=== PATIENT | male | born 1960 | race Caucasian/White ===

== ENCOUNTER 2021-11-29 23:12 | Emergency (ER) | payer OTHER ==
[~2021-11-29] VITALS: Ht 180.3 cm; Wt 122.5 kg
[~2021-11-29 23:12] MED LIST: CIPR500 PO; CITA20 PO; DOXY100 PO; ESCI10; HYDCHL12.5 PO; HYDCHL25; HYDR-86; Inderal40 MG PO; LISI20 PO; Levaquin500 MG PO; Lovenox120 MG/0.8 SC; METHYLPHENIDATE20 M1 PO; OLME20-12.; OXYACE5T PO; QUET25; WARF1 PO; WARF5; ZOLP10; oxycodone-acetaminop PO
[2021-11-29] MEDS ORDERED: DESVENLAFAXINE50 M3 PO (23:22)
[2021-11-29] MEDS ORDERED: AMLODIPINE BES2.5 MG PO (23:23)
[2021-11-29] MEDS ORDERED: CLONAZEPAM2 MG PO (23:23)
[2021-11-29 23:50] LABS: International Normalized Ratio 1.62; Prothrombin Time Results 16.5 Sec (9.7-11.5)
[2021-11-30] MEDS ORDERED: ELIQUIS5 MG PO (00:23)
== END 2021-11-30 00:40 | disposition home or self-care (01) ==
LOC: ER 23:12
PROVIDERS: Emergency Medicine
DX: I82.431 Acute embolism and thrombosis of right popliteal vein (principal); I82.451 Acute embolism and thrombosis of right peroneal vein; R79.1 Abnormal coagulation profile; I10 Essential (primary) hypertension; Z79.899 Other long term (current) drug therapy
CPT/HCPCS: 36415; 85610; 85730; 93971; 99284-25; A9270

== ENCOUNTER 2022-08-29 15:14 | Emergency (ER) | payer OTHER ==
[~2022-08-29] VITALS: Ht 177.8 cm; Wt 122.5 kg
[~2022-08-29 15:14] MED LIST changes: +AMLODIPINE BES2.5 MG PO; +CLONAZEPAM2 MG PO; +DESVENLAFAXINE50 M3 PO; +ELIQUIS5 MG PO
[2022-08-29 16:28] LABS: BASOPHILS ABSOLUTE AUTO 0.07 K/mm3 (0.00-0.23); BASOPHILS PERCENT AUTO 1 % (0-2); EOSINOPHILS ABSOLUTE AUTO 0.07 K/mm3 (0.00-0.68); EOSINOPHILS PERCENT AUTO 1 % (0-6); Hematocrit 47.6 % (37.0-53.0); Hemoglobin 15.6 g/dL (13.5-17.5); IMMATURE GRAN ABSOLUTE AUTO 0.03 K/mm3 (0.00-0.10); IMMATURE GRAN PERCENT AUTO 0 % (0-1); LYMPHOCYTES ABSOLUTE AUTO 1.16 K/mm3 (0.84-5.20); LYMPHOCYTES PERCENT AUTO 14 % (21-46); MONOCYTES ABSOLUTE AUTO 0.75 K/mm3 (0.16-1.47); MONOCYTES PERCENT AUTO 9 % (4-13); Mean Corpuscular HGB 30.2 pg (26.0-34.0); Mean Corpuscular HGB Conc 32.8 g/dL (31.5-36.5); Mean Corpuscular Volume 92 fL (80-100); Mean Platelet Volume 10.1 fL (9.1-12.4); NEUTROPHILS PERCENT AUTO 76 % (41-73); Platelet Count 278 K/mm3 (150-400); RDW Coefficient Variation 13.9 % (11.7-14.2); RDW Standard Deviation 47.3 fL (35.1-46.3); Red Blood Cell Count 5.16 M/mm3 (4.30-5.90); White Blood Cell Count 8.48 K/mm3 (4.00-11.30)
[2022-08-29 16:39] LABS: Albumin, Blood 3.3 g/dL (3.4-5.0); Albumin/Globulin Ratio 0.9 (0.8-1.8); Bilirubin, Total 0.6 mg/dL (0.1-1.0); Bun/Creatinine Ratio 20.8 (12.0-20.0); Calcium, Blood 8.6 mg/dL (8.5-10.1); Creatinine, Blood 1.01 mg/dL (0.60-1.20); Globulin, Blood 3.5 g/dL (2.2-4.0); Potassium, Blood 3.8 mmol/L (3.5-5.5); Total Protein, Blood 6.8 g/dL (6.4-8.2)
[2022-08-29 17:15] LABS: Influenza A, PCR NEGATIVE (NEGATIVE); Influenza B, PCR NEGATIVE (NEGATIVE); Resp Syncytial Virus, PCR NEGATIVE (NEGATIVE); SARS-Cov-2 (COVID-19) PCR, MMC NEGATIVE (NEGATIVE)
[2022-08-29] MEDS ORDERED: METO25ER PO (20:07)
[2022-08-29] MEDS ORDERED: FURO20 PO (20:07)
== END 2022-08-29 21:20 | disposition home or self-care (01) ==
LOC: ER 15:14
PROVIDERS: Physician Assistant
DX: I11.0 Hypertensive heart disease with heart failure (principal); I50.9 Heart failure, unspecified; I49.3 Ventricular premature depolarization; R09.89 Other specified symptoms and signs involving the circulatory and respiratory systems; Z20.822 Contact with and (suspected) exposure to COVID-19; Z79.899 Other long term (current) drug therapy; Z79.01 Long term (current) use of anticoagulants; Z86.711 Personal history of pulmonary embolism; Z86.718 Personal history of other venous thrombosis and embolism
CPT/HCPCS: 0241U; 36415; 71260; 80053; 83880; 84484; 85025; 85379; 93005; 93010; 96374; 96375; 99285-25; A9270; J1940; J7030; Q9967

== ENCOUNTER 2022-12-23 12:02 | Inpatient (IN) | payer OTHER ==
[~2022-12-23] VITALS: Ht 177.8 cm; Wt 124.9 kg
[~2022-12-23 12:02] MED LIST changes: +CELEXA40 M1 PO; +DIGOX125 MC1 PO; +ELIQUIS5 M2 PO; +FURO20 PO; +HYDCHL25 PO; +METO25ER PO; +METO50ER PO; +ZOLP10 PO
[2022-12-23 12:45] LABS: BASOPHILS ABSOLUTE AUTO 0.05 K/mm3 (0.00-0.23); BASOPHILS PERCENT AUTO 1 % (0-2); EOSINOPHILS ABSOLUTE AUTO 0.23 K/mm3 (0.00-0.68); EOSINOPHILS PERCENT AUTO 2 % (0-6); Hematocrit 51.9 % (37.0-53.0); Hemoglobin 17.3 g/dL (13.5-17.5); IMMATURE GRAN ABSOLUTE AUTO 0.04 K/mm3 (0.00-0.10); IMMATURE GRAN PERCENT AUTO 0 % (0-1); LYMPHOCYTES ABSOLUTE AUTO 0.45 K/mm3 (0.84-5.20); LYMPHOCYTES PERCENT AUTO 4 % (21-46); MONOCYTES ABSOLUTE AUTO 0.83 K/mm3 (0.16-1.47); MONOCYTES PERCENT AUTO 8 % (4-13); Mean Corpuscular HGB 29.4 pg (26.0-34.0); Mean Corpuscular HGB Conc 33.3 g/dL (31.5-36.5); Mean Corpuscular Volume 88 fL (80-100); Mean Platelet Volume 10.5 fL (9.1-12.4); NEUTROPHILS ABSOLUTE AUTO 8.85 K/mm3 (1.96-9.15); NEUTROPHILS PERCENT AUTO 85 % (41-73); Platelet Count 275 K/mm3 (150-400); RDW Standard Deviation 54.7 fL (35.1-46.3); Red Blood Cell Count 5.88 M/mm3 (4.30-5.90); White Blood Cell Count 10.45 K/mm3 (4.00-11.30)
[2022-12-23 13:03] LABS: Albumin, Blood 2.1 g/dL (3.4-5.0); Albumin/Globulin Ratio 0.5 (0.8-1.8); Bilirubin, Total 4.6 mg/dL (0.1-1.0); Bun/Creatinine Ratio 17.7 (12.0-20.0); Calcium, Blood 7.8 mg/dL (8.5-10.1); Creatinine, Blood 1.3 mg/dL (0.60-1.20); Globulin, Blood 3.9 g/dL (2.2-4.0); Potassium, Blood 3.9 mmol/L (3.5-5.5)
[2022-12-23 13:22] LABS: Digoxin (Lanoxin) 0.16 ug/mL (0.80-2.00)
[2022-12-23 15:20] LABS: Base Excess Venous -2.2 mmol/L; Bicarbonate Venous 23.3 mmol/L (24.0-30.0); pH Blood Venous 7.42 (7.34-7.37)
--- NOTE | 2022-12-23 16:31 | NUR ---
ADMIT PT ARRIVED TO ICU 8 VIA GURNEY. PT ALERT AND ORIENTED. ORIENTED PT TO ROOM, PLAN OF CARE, FALL PRECAUTIONS. PT'S FRIEND AND ROOMMATE, SCAR, IN THE ROOM WITH HIM. PT CALLED HIS SARAH AND UPDATED HER WELL. CONTINUE TO MONITOR.
--- NOTE | 2022-12-23 18:42 | NUR ---
Pt to OR at 1840. Amiodarone gtt infusing. HR has been 110-120s. sbp upper 80-110s with map in the 70s.
--- NOTE | 2022-12-23 19:26 | NUR ---
12/23/221925 [place] PT ON SCHEDULED ANTIBIOTICS AND RECIEVED PRIOR TO ARRIVAL TO OR.
[2022-12-24 05:18] LABS: Source, Urine Foley catheter
[2022-12-24 05:23] LABS: Appearance, Urine Hazy (Clear); Blood, Urine 1+ (Neg); Color, Urine Amber (P-Yellow); Glucose Qualitative, Urine Neg (Neg); Ketones, Urine Neg (Neg); Leukocyte Esterase, Urine 1+ (Neg); Nitrite, Urine Pos (Neg); Protein, Urine 3+ (Neg); Specific Gravity, Urine 1.015 (1.003-1.022); Urobilinogen, Urine 1+ (Normal)
[2022-12-24 05:27] LABS: BASOPHILS ABSOLUTE AUTO 0.08 K/mm3 (0.00-0.23); BASOPHILS PERCENT AUTO 1 % (0-2); EOSINOPHILS ABSOLUTE AUTO 0.23 K/mm3 (0.00-0.68); EOSINOPHILS PERCENT AUTO 2 % (0-6); Hematocrit 52.8 % (37.0-53.0); Hemoglobin 17.7 g/dL (13.5-17.5); IMMATURE GRAN ABSOLUTE AUTO 0.09 K/mm3 (0.00-0.10); IMMATURE GRAN PERCENT AUTO 1 % (0-1); LYMPHOCYTES ABSOLUTE AUTO 0.63 K/mm3 (0.84-5.20); LYMPHOCYTES PERCENT AUTO 4 % (21-46); MONOCYTES ABSOLUTE AUTO 1.42 K/mm3 (0.16-1.47); MONOCYTES PERCENT AUTO 10 % (4-13); Mean Corpuscular HGB 29.3 pg (26.0-34.0); Mean Corpuscular HGB Conc 33.5 g/dL (31.5-36.5); Mean Corpuscular Volume 87 fL (80-100); Mean Platelet Volume 11.1 fL (9.1-12.4); NEUTROPHILS ABSOLUTE AUTO 11.71 K/mm3 (1.96-9.15); NEUTROPHILS PERCENT AUTO 83 % (41-73); Platelet Count 291 K/mm3 (150-400); RDW Coefficient Variation 18.2 % (11.7-14.2); Red Blood Cell Count 6.04 M/mm3 (4.30-5.90); White Blood Cell Count 14.16 K/mm3 (4.00-11.30)
[2022-12-24 05:46] LABS: Albumin, Blood 1.5 g/dL (3.4-5.0); Albumin/Globulin Ratio 0.4 (0.8-1.8); Calcium, Blood 7.2 mg/dL (8.5-10.1); Creatinine, Blood 1.83 mg/dL (0.60-1.20); Globulin, Blood 4.1 g/dL (2.2-4.0); Potassium, Blood 5.8 mmol/L (3.5-5.5); Total Protein, Blood 5.6 g/dL (6.4-8.2)
[2022-12-24 06:01] LABS: Bilirubin, Urine 2+ (Neg)
[2022-12-24 06:09] LABS: Bacteria Many /hpf; Red Blood Cells, Urine 0-2 /hpf (0-2); Squamous Epithelial Cells Rare /hpf (Few)
[2022-12-24 06:10] LABS: Granular Casts 0-2 /lpf (0); Hyaline Casts 0-2 /lpf (0-2)
--- NOTE | 2022-12-24 07:30 | NUR ---
ASSUMED CARE: PT INTUBATED BUT VERY AWAKE. NODS TO YES/NO QUESTIONS, FOLLOWS COMMANDS. PUPILS EQUAL BILATERAL EYES. VENT AT AC 14/500/5/ 65% SATTING MID 90S. HR 102, AFIB, ON AMIO GTT AT 0.5MG/MIN. LEVOPHED GTT AT 7MCG/MIN WITH MAP OF 80. PROPOFOL GTT AT 10MCG/KG. NG TO LIS, BROWNISH, GREEN DRAINAGE NOTED. BT DIMINISHED. MIDLINE NAHEED WITH SCANT BLOOD ON DRESSING. OSTOMY TO LEFT LOWER QUADRANT, STOMA PINK WITH SCANT BLOOD NOTED. WHITE CATH IN PLACE WITH DARK, TEA COLORED URINE. NIGHT RN SPOKE WITH PT'S FAMILY TO GIVE UPDATE. NO FURTHER NEEDS AT THIS TIME.
--- NOTE | 2022-12-24 07:34 | NUR ---
SHIFT SUMMARY RECEIVED PATIENT FROM OR TO ICU @ 2215, INTUBATED. CONTACTED HOSPITALIST FOR ORDERS FOR HYPOTENSION AND SEDATION. THIS MORNING, LIGHTLY SEDATED ON PROPOFOL. WAKES CALMLY, FOLLOWS COMMANDS, DENIES PAIN. VENTILATED, VC-A/C, 65% FIO2, PEEP 5, RATE 14. TOLERATING WELL; OVERBREATHING VENT. SINUS TACH ON MONITOR WITH FREQUENT PVCS. HR 100-110S; INTERMITTENTLY HR JUMPS TO 130-140S, BUT RESOLVES WITH A FEW SECONDS. HYPOTENSIVE POSTOPERATIVELY, REQUIRING LEVOPHED; CURRENTLY INFUSING AT 7MCG/MIN. AMIODARONE AT 0.5MG/MIN. COLOSTOMY TO LLQ; ROUND, SLIGHTLY BUDDED, BEEFY RED/BLOODY. NO OUTPUT. NGT TO LIWS; 550CC OF BILIOUS DRAINAGE. WHITE CATH IN PLACE, 400CC OF FABAINA URINE OUT. NAHEED DRESSING TO MIDLINE ABDOMINAL INCISION, INTACT. REPORT GIVEN TO ONCOMING SHIFT.
--- NOTE | 2022-12-24 09:20 | NUR ---
DR CONNELLY CAME TO SEE PT AND PLACED HIM ON PRESSURE SUPPORT 5/5. FIO2 DOWN TO 45%. PROPOFOL ON SB. PT'S RESPIRATORY STATUS IN 20S-30S WITH THIS CHANGE. NO OTHER CONCERNS AT THIS TIME.
--- NOTE | 2022-12-24 10:34 | NUR ---
PT EXTUBATED AT 1015. ON 6L O2 AT THIS TIME, SATTING 91%. RESTRAINTS DISCONTINUED WITH EXTUBATION. PT AWAKE, TALKING TO STAFF, STATED HE WAS HAVING PAIN 05/18. MEDICATED FOR THIS PER ORDERS. AMIO GTT REMAINS AT THIS TIME PER DR CONNELLY. TITRATING LEVOPHED ABLE.
--- NOTE | 2022-12-24 14:00 | NUR ---
DR BERMUDEZ CAME TO SEE PT AND INSTRUCTED TO REMOVE NG TUBE. STATED THAT PT CAN HAVE ICE CHIPS SPARINGLY. ALSO STATED THAT ANTICOAGULATION CAN RESUME THIS PM. INFORMED PT THAT HE WOULD LIKELY BE IN THE HOSPITAL FOR A FEW DAYS. NO FURTHER NEEDS OR COMPLAINTS AT THIS TIME.
--- NOTE | 2022-12-24 15:05 | NUR ---
Pt. is awake in bed and welcomes my visit. Pt. is pleasant and verbalizes that he is recovering from a recent abdominal surgery. Listen with empathy and a calming presence. Pt. displays evidence of being engaged and aware of his condition. Pt. also displays evidence of discomfort. Facilitate a life review and establish rapport. Prayed with Pt. Pt. verbalizes gratitude for the spiritual care visit and welcomes this optics test technician to return.
--- NOTE | 2022-12-24 18:02 | NUR ---
SHIFT SUMMARY: PT REMAINS ON 6L O2 SATTING MID 90S ON THIS. LEVOPHD OFF WITH MAPS IN 60S. AMIODORONE GTT REMAINS AND DR CONNELLY INSTRUCTS FOR THIS TO REMAIN ON UNTIL SURGEON CLEARS FOR ORAL INTAKE. NG REMOVED AND NO EXTRA PAIN OR C/O NAUSEA FROM PT. ABDOMEN DOES APPEAR DISTENDED BUT PT DENIES PAIN. HYPOACTIVE BOWEL TONES REMAIN.
[2022-12-24 18:53] LABS: International Normalized Ratio 1.52; Prothrombin Time Results 15.5 Sec (9.7-11.5)
--- NOTE | 2022-12-24 19:15 | NUR ---
ASSUMPTION OF CARE PT IS A&OX4, USES CALL LIGHT APPROPRIATELY AND PARTICIPATES IN CONVERSATION. HE IS RECEIVING AMIODARONE AND NS TKO. PLAN FOR HEPARIN GTT TO BE STARTED AT 2000. LUNGS ARE CLEAR, DIMINISHED IN BASES. PT HAS A DRY COUGH. PT REQUESTING WATER AND FOOD. EXPLAINED IMPORTANCE OF NPO STATUS AND PT VERABLIZES UNDERSTANDING. ABDOMEN DISTENDED BUT SOFT. MIDLINE NAHEED DRESSING INTACT. LLQ STOMA IS PINK, NO OUTPUT IN BAG. WHITE PATENT AND DRAINING DARK YELLOW URINE TO GRAVITY. SINUS TACH ON MONITOR WITH RATE 110S-150S. MAP >65. BED IN LOW POSITION AND CALL LIGHT WITHIN REACH.
[2022-12-24 21:13] LABS: Magnesium, Blood 2.4 mg/dL (1.6-2.4)
[2022-12-24 21:14] LABS: Bun/Creatinine Ratio 19.1 (12.0-20.0); Calcium, Blood 7.5 mg/dL (8.5-10.1); Creatinine, Blood 2.25 mg/dL (0.60-1.20)
[2022-12-24 21:18] LABS: Potassium, Blood 3.6 mmol/L (3.5-5.5)
[2022-12-25 02:58] LABS: Hematocrit 50.2 % (37.0-53.0); Hemoglobin 16.6 g/dL (13.5-17.5); Mean Corpuscular HGB 28.7 pg (26.0-34.0); Mean Corpuscular HGB Conc 33.1 g/dL (31.5-36.5); Mean Corpuscular Volume 87 fL (80-100); Mean Platelet Volume 10.6 fL (9.1-12.4); Platelet Count 282 K/mm3 (150-400); RDW Coefficient Variation 18.2 % (11.7-14.2); RDW Standard Deviation 53.9 fL (35.1-46.3); Red Blood Cell Count 5.78 M/mm3 (4.30-5.90); White Blood Cell Count 13.26 K/mm3 (4.00-11.30)
[2022-12-25 03:13] LABS: Magnesium, Blood 2.5 mg/dL (1.6-2.4)
[2022-12-25 03:14] LABS: Bun/Creatinine Ratio 20.5 (12.0-20.0); Calcium, Blood 7.3 mg/dL (8.5-10.1); Creatinine, Blood 2.2 mg/dL (0.60-1.20); Phosphorus, Blood 4.9 mg/dL (2.5-4.9); Potassium, Blood 3.5 mmol/L (3.5-5.5)
--- NOTE | 2022-12-25 06:05 | NUR ---
SHIFT SUMMARY PT RECEIVING AMIODARONE AND HEPARIN 9UNITS/KG/HR. HEPARIN WAS OFF FROM 1343-3745 DUE TO CRITICAL PTT. GTT RESTARTED AT LOWER RATE PER PHARMACY. PT REMAINS A&OX4. HE RESTED FOR MOST OF THE NIGHT. LUNGS ARE CLEAR, DIMINISHED IN BASES. HE HAS WORN CPAP 20/15 WITH 5L. MIDLINE NAHEED DRESSING INTACT WITH SCANT AMOUNT OF SANGUINEOUS DRAINAGE THAT IS UNCHANGED THROUGHOUT THE SHIFT. LLQ STOMA IS PINK. VERY SMALL AMOUNT OF PINK/LIGHT RED LIQUID DRAINAGE. PT DENIES GI UPSET AND ABDOMINAL PAIN. AFIB WITH OCCASIONAL PVCS ON MONITOR WITH RATE 110S-150S. BP STABLE WITH MAP >65. WHITE PATENT AND DRAINING DARK YELLOW/CLOUDY URINE TO GRAVITY WITH 1750ML SHIFT OUTPUT. BED IN LOW POSITION, CALL LIGHT WITHIN REACH.
--- NOTE | 2022-12-25 17:00 | NUR ---
Telephone report from MAKAYLA Ziegler. Pt coming to PCU 17 from ICU shortly.
--- NOTE | 2022-12-25 17:39 | NUR ---
SUMMARY PT A/O X4 ALL DAY. DENIES PAIN, N/V, AND SOB. DOES GET SOB WITH EXERTION. O2 TITRATED DOWN TO 2L. GOT OOB WITH ASSIST FROM OT. SAT IN CHAIR FOR A COUPLE HOURS BEFORE AMB BACK TO BED WITH ONE PERSON ASSIST. TOLERATING ICE CHIPS AND SIPS OF WATER PER DR. BERMUDEZ ORDERS. SCANT AMT OF CLEAR RED/PINK FLUID OUTPUT FROM COLOSTOMY. MIDLINE ABD NAHEED INTACT. CONTINUES ON AMIODORONE GTT DUE TO NOT CLEARED FOR PILLS YET. CONTINUES HEPARIN GTT MANAGED BY PHARMACY FOR PE/DVT PROPHALAXIS. PT DOWNGRADED TO PCU STATUS. TRANSFERED TO PCU VIA BED, NO SIGN OF DISTRESS HE LEAVES THE UNIT.
--- NOTE | 2022-12-25 18:00 | NUR ---
Pt arrived via bed from ICU to PCU 17. He is alert, oriented and appears calm and cooperative. Slid pt with 4 staff members assisting. States that his pain level is tolerable, "fine" at 3/10. Atrial fibrillation noted by telemetry monitoring. Blood pressure remains soft, set to measure q 15 minutes until stable. Lung sound clear to auscultation. Spo2 97% on 3 l/min of O2 n.c. delivery. Bowel tones are hypoactive. Midline abdominal incision dressing and NAHEED drain noted clean dry and itact. Colostomy bag on the LLQ draining scant amount of red liquid. Aguirre catheter draining clear yellow urine into closed collection bag. Skin intact other than abdomen as noted. Hands are warm, pink, dry. Feet are pink and dry but cool to touch. Cap refill is 4 seconds and pedal pulses are very faint. Verified heparin and amiodarone gtt to eMAR at time of arrival to unit. Peripheral IVs and midline extended dwell catheter to the LUE noted WNL. Pt was given some ice water, and ice chips, and states that he has been tolerating these very well today.
--- NOTE | 2022-12-25 18:13 | NUR ---
Pt given incentive spirometer and instructed on its use. He verbalized understanding.
--- NOTE | 2022-12-25 23:15 | NUR ---
CALL TO PHYSICIAN NOTIFIED PHYSICIAN OF CONSISTANT LOW BP's. MOST RECENT MAP 62. PT ASYMPTOMATIC. EXPRESSED CONCERN REGARDING ADMINISTERING THE 0000 40mg IV LASIX WITH THE BP BEING SOFT. INFORMED PHYSICIAN THAT THE 1800 DOSE WAS ALSO HELD D/T SOFT BP. ASKED ABOUT ADMINISTERING MIDODRINE. PHYSICIAN STATED THAT THEY WILL LOOK THROUGH THE CHART AND POSSIBLY PLACE ORDERS. INSTRUCTIONS GIVEN TO HOLD 0000 LASIX. NO NEW ORDERS AT THIS TIME.
--- NOTE | 2022-12-25 23:15 | NUR ---
CALL TO PHYSICIAN NOTIFIED PHYSICIAN OF CONSISTANT LOW BP's. MOST RECENT MAP 62. PT ASYMPTOMATIC. EXPRESSED CONCERN REGARDING ADMINISTERING THE 0000 80mg IV LASIX WITH THE BP BEING SOFT. INFORMED PHYSICIAN THAT THE 1800 DOSE WAS ALSO HELD D/T SOFT BP. ASKED ABOUT ADMINISTERING MIDODRINE. PHYSICIAN STATED THAT THEY WILL LOOK THROUGH THE CHART AND POSSIBLY PLACE ORDERS. INSTRUCTIONS GIVEN TO HOLD 0000 LASIX. NO NEW ORDERS AT THIS TIME.
[2022-12-26 03:43] LABS: BASOPHILS ABSOLUTE AUTO 0.03 K/mm3 (0.00-0.23); BASOPHILS PERCENT AUTO 0 % (0-2); EOSINOPHILS PERCENT AUTO 2 % (0-6); Hematocrit 45.3 % (37.0-53.0); Hemoglobin 15.5 g/dL (13.5-17.5); IMMATURE GRAN ABSOLUTE AUTO 0.12 K/mm3 (0.00-0.10); IMMATURE GRAN PERCENT AUTO 1 % (0-1); LYMPHOCYTES ABSOLUTE AUTO 0.63 K/mm3 (0.84-5.20); LYMPHOCYTES PERCENT AUTO 5 % (21-46); MONOCYTES ABSOLUTE AUTO 0.84 K/mm3 (0.16-1.47); MONOCYTES PERCENT AUTO 7 % (4-13); Mean Corpuscular HGB Conc 34.2 g/dL (31.5-36.5); Mean Corpuscular Volume 85 fL (80-100); Mean Platelet Volume 10.8 fL (9.1-12.4); NEUTROPHILS ABSOLUTE AUTO 9.96 K/mm3 (1.96-9.15); NEUTROPHILS PERCENT AUTO 85 % (41-73); Platelet Count 285 K/mm3 (150-400); RDW Coefficient Variation 16.9 % (11.7-14.2); RDW Standard Deviation 51.7 fL (35.1-46.3); Red Blood Cell Count 5.35 M/mm3 (4.30-5.90); White Blood Cell Count 11.78 K/mm3 (4.00-11.30)
[2022-12-26 04:32] LABS: Albumin, Blood 1.3 g/dL (3.4-5.0); Anion Gap 10 mmol/L (6-16); Blood Urea Nitrogen 42 mg/dL (8-24); CO2, Blood 27 mmol/L (21-32); Calcium, Blood 6.9 mg/dL (8.5-10.1); Chloride, Blood 101 mmol/L (98-108); Creatinine, Blood 1.68 mg/dL (0.60-1.20); Glomerular Filtration Rate 45 (60-); Glucose, Blood 205 mg/dL (70-99); Phosphorus, Blood 3.8 mg/dL (2.5-4.9); Potassium, Blood 2.9 mmol/L (3.5-5.5); Sodium, Blood 138 mmol/L (136-145)
--- NOTE | 2022-12-26 05:00 | NUR ---
SHIFT SUMMARY SEE PREVIOUS NOTES. A&Ox4, CALLS AND COMMUNICATES NEEDS APPROPRIATELY. BP SOFT THROUGHOUT SHIFT, PT ASYMPTOMATIC, PHYSICIAN AWARE. AFIB 90-110's, AMIO gtt @ 0.5 UNTIL PT TRANSITIONED TO PO. PT DENIES CP/PRESSURE. SpO2> 92% 2L VIA NC OR CPAP WITH 5L BLEED IN. PT DENIES SOB. HEPARIN gtt @ 14. NAHEED DRESSING OVER ABDOMINAL INCISION REMAINED UNCHANGED THIS SHIFT, SCANT SEROSANGUINEOUS DRAINAGE PRESENT. PT DENIES PAIN. OSTOMY WNL, PT HAS VERY SMALL, RED/CLEAR, LIQUID OUTPUT. WHITE CATHETER IN PLACE, PATENT, DRAINING TO GRAVITY. NO OTHER EVENTS, WILL REPORT TO ONCOMING RN.
--- NOTE | 2022-12-26 05:08 | NUR ---
CALL TO PHYSCIAN NOTIFIED PHYSICIAN OF BP REMAINING SOFT, PT ASYMPTOMATIC, THOUGH STILL CONCERNED ABOUT ADMINISTERING 0600 DOSE OF 80mg IV LASIX. ORDERS PALCED TO ADMINISTER 20mg IV LASIX AT 0600. MENTIONED THE PT's ALBUMIN BEING 1.3 AND ASKED IF THEY WANTED TO ADMINISTER ALBUMIN TO IMPROVE HYPOTENTION, NO NEW ORDERS AT THIS TIME. MENTIONED POTASSIUM BEING 2.9, ORDERS PLACED.
--- NOTE | 2022-12-26 07:38 | NUR ---
Pt is very sleepy. States that he did not get much rest last night. He falls asleep between conversation, awakes easily. Denies pain. Blood pressure is now elevated, last check was 165/147, heart rate and rhythm atrial fibrillation, 110 bpm. Spo2 87-89% on 2 l/min; increased O2 to 3 l/min now spo2 94%. Respirations are irregular while sleeping. Pt states that the CPAP mask was too hot, even with the heater off.Noc shift RN also reports this.
--- NOTE | 2022-12-26 10:07 | NUR ---
Pt up to recliner while working with HERNANDEZ Carey. He needed additional oxygen (increased from 3 to 6 L) during the activity for spo2 80-83%. He is asking for clear liquids. States that is his goal for the day.
--- NOTE | 2022-12-26 15:05 | NUR ---
Assisted back to bed after working with physical therapist, and sitting up in recliner afterwards. He said he would probably nap, so was helped to put the CPAP on, 5 l/min O2 bleed in. He is tolerating the clear liquids very well.
--- NOTE | 2022-12-26 15:58 | NUR ---
Heparin gtt stopped at this time, per pharmacy.
--- NOTE | 2022-12-27 02:08 | NUR ---
UPDATE AFTER GETTIING PT UP TO CHAIR, THIS RN NOTED THAT NAHEED DRESSING HAD A MODERATE AMOUNT OF NEW SANGUINEOUS DRAINAGE. DISCUSSED AND ASSESSED WITH SURGIACL FLOOR RN AND LEARNING DISABILITIES SPECIALIST. TOGETHER, WE PULLED DRESSING BACK TO ASSESS INCISION. NO OOZING PRESENT, INCISION LOOKS GROSSLY INTACT. MARKED DRAINANGE BOARDER WITH BENEDICTO. ENSURED THAT NAHEED DRESSING FUNCTIONING APPROPRIATELY. WILL CONTINUE TO MONITOR.
[2022-12-27 03:40] LABS: BASOPHILS ABSOLUTE AUTO 0.07 K/mm3 (0.00-0.23); BASOPHILS PERCENT AUTO 1 % (0-2); EOSINOPHILS ABSOLUTE AUTO 0.13 K/mm3 (0.00-0.68); EOSINOPHILS PERCENT AUTO 1 % (0-6); IMMATURE GRAN ABSOLUTE AUTO 0.26 K/mm3 (0.00-0.10); IMMATURE GRAN PERCENT AUTO 2 % (0-1); LYMPHOCYTES ABSOLUTE AUTO 0.26 K/mm3 (0.84-5.20); LYMPHOCYTES PERCENT AUTO 2 % (21-46); MONOCYTES ABSOLUTE AUTO 0.13 K/mm3 (0.16-1.47); MONOCYTES PERCENT AUTO 1 % (4-13); Mean Corpuscular HGB 28.9 pg (26.0-34.0); Mean Corpuscular Volume 85 fL (80-100); NEUTROPHILS ABSOLUTE AUTO 11.52 K/mm3 (1.96-9.15); NEUTROPHILS PERCENT AUTO 93 % (41-73); NRBC ABSOLUTE 0.02 K/mm3 (0.00-0.02); NRBC Auto 0.2 /100 WBC (0.0-0.2); Platelet Count 297 K/mm3 (150-400); RDW Coefficient Variation 16.9 % (11.7-14.2); RDW Standard Deviation 52.2 fL (35.1-46.3); Red Blood Cell Count 5.53 M/mm3 (4.30-5.90); White Blood Cell Count 12.37 K/mm3 (4.00-11.30)
[2022-12-27 04:05] LABS: Albumin, Blood 1.5 g/dL (3.4-5.0); Anion Gap 8 mmol/L (6-16); Blood Urea Nitrogen 32 mg/dL (8-24); Bun/Creatinine Ratio 23.5 (12.0-20.0); CO2, Blood 27 mmol/L (21-32); Calcium, Blood 6.9 mg/dL (8.5-10.1); Chloride, Blood 100 mmol/L (98-108); Creatinine, Blood 1.36 mg/dL (0.60-1.20); Glomerular Filtration Rate 58 (60-); Glucose, Blood 180 mg/dL (70-99); Phosphorus, Blood 2.4 mg/dL (2.5-4.9); Sodium, Blood 135 mmol/L (136-145)
--- NOTE | 2022-12-27 05:14 | NUR ---
SHIFT SUMMARY A&Ox4, CALLS AND COMMUNICATES NEEDS APPROPRIATELY. BP SOFT AT TIMES, PT ASYMPTOMATIC. AFIB 100-130's, AMIO gtt @ 0.5 UNTIL PT TRANSITIONED TO PO. PT DENIES CP/PRESSURE. SpO2> 92% 5L VIA NC OR CPAP WITH 5L BLEED IN. PT DENIES SOB. HEPARIN gtt @ 15.5. NAHEED DRESSING OVER ABDOMINAL INCISION, SEE PREVIOUS NOTE. PT WITH COMPLAINT OF MOD-SEVERE PAIN IN BACK AND MILD-MOD PAIN IN ABDOMEN, MEDICATED PER EMAR. OSTOMY WNL, PRODUCING GAS AND BROWN LIQUID OUTPUT. WHITE CATHETER IN PLACE, PATENT, DRAINING TO GRAVITY. NO OTHER EVENTS, WILL REPORT TO ONCOMING RN.
--- NOTE | 2022-12-27 06:30 | NUR ---
CALL TO PHYSICIAN NOTIFIED PHYSICICAN OF PT's HR TRENDING UP AND NOW SUSTAINING 120-150's AFIB. DISCUSSED BP AND HR WELL SCHEDULED MORNING MEDICATIONS. ORDERS PLACED.
--- NOTE | 2022-12-27 07:36 | NUR ---
ASSUMED CARE: PT RESTING IN BED ON 5L O2 VIA NC. HR AFIB IN 120S AT THIS TIME. AMIO GTT RUNNING, HEPARIN GTT VERIFIED WITH ORDERS AND NIGHT RN. NAHEED DRESSING TO MIDLINE NOTED TO HAVE OLD BLOOD ON BOTTOM HALF, BORDERS DRAWN. PT DENIES NEEDS OR CONCERNS AT THIS TIME.
--- NOTE | 2022-12-27 08:04 | NUR ---
CALL TO DR MATTA TO DISCUSS PT'S AMIODORONE ORDER. DR INSTRUCTED TO GIVE DOSE OF MIDODRINE NOW AND THEN RECHECK VITALS AND IF WITHIN PARAMETERS GIVE ORAL METOPROLOL. ALSO INSTRUCTS TO LET AMIODORONE GTT FINISH AND SHE WILL ORDER ORAL MEDICATION DEPENDING ON VITALS AT THAT TIME.
--- NOTE | 2022-12-27 10:02 | NUR ---
DR MATTA CAME TO SEE PT AND INSTRUCTS FOR PRN METOPROLOL IF NEEDED. STATES FOR WHITE TO STAY IN PLACE AT THIS TIME DUE TO IV DIURETICS. PHYSICAL THERAPIST AT BEDSIDE AT THIS TIME. PT REMAINS UP IN CHAIR CURRENTLY
--- NOTE | 2022-12-27 12:01 | NUR ---
DR BERMUDEZ CAME TO SEE PT AND STATED THAT NAHEED DRESSING COULD BE DRAINED. ALSO STATES THAT PT COULD BE PUT BACK ON ORAL ANTICOAGULANTS. CALL TO DR MATTA TO MAKE HER AWARE OF THIS.
--- NOTE | 2022-12-27 18:44 | NUR ---
SHIFT SUMMARY: PT HAS BEEN MEDICATED FOR PAIN X2 THIS SHIFT. C/O BACK PAIN. NAHEED DRESSING CHANGED X1 TODAY WITH MINIMAL DRAINAGE REMAINING. SITE WITH SOME OOZING NOTED OF SEROSANGUINOUS FLUID. COLOSTOMY DRAINING BROWN LIQUID AND GAS. UP TO CHAIR X1 THIS SHIFT AND WORKED WITH PHYSICAL THERAPY. HR AFIB ON TELE IN 90S. AMIO GTT OFF AND HEPARIN GTT CHANGED TO ELIQUIS. NO FURTHER NEEDS AT THIS TIME.
[2022-12-28 05:18] LABS: BASOPHILS ABSOLUTE AUTO 0.09 K/mm3 (0.00-0.23); BASOPHILS PERCENT AUTO 1 % (0-2); EOSINOPHILS ABSOLUTE AUTO 0.12 K/mm3 (0.00-0.68); EOSINOPHILS PERCENT AUTO 1 % (0-6); Hematocrit 46.4 % (37.0-53.0); Hemoglobin 15.8 g/dL (13.5-17.5); IMMATURE GRAN ABSOLUTE AUTO 0.18 K/mm3 (0.00-0.10); IMMATURE GRAN PERCENT AUTO 1 % (0-1); LYMPHOCYTES ABSOLUTE AUTO 0.78 K/mm3 (0.84-5.20); LYMPHOCYTES PERCENT AUTO 4 % (21-46); MONOCYTES ABSOLUTE AUTO 0.67 K/mm3 (0.16-1.47); MONOCYTES PERCENT AUTO 4 % (4-13); Mean Corpuscular HGB 28.9 pg (26.0-34.0); Mean Corpuscular HGB Conc 34.1 g/dL (31.5-36.5); Mean Corpuscular Volume 85 fL (80-100); NEUTROPHILS ABSOLUTE AUTO 15.73 K/mm3 (1.96-9.15); NEUTROPHILS PERCENT AUTO 90 % (41-73); NRBC ABSOLUTE 0.02 K/mm3 (0.00-0.02); NRBC Auto 0.1 /100 WBC (0.0-0.2); Platelet Count 309 K/mm3 (150-400); RDW Coefficient Variation 17.9 % (11.7-14.2); RDW Standard Deviation 53.8 fL (35.1-46.3); Red Blood Cell Count 5.47 M/mm3 (4.30-5.90); White Blood Cell Count 17.57 K/mm3 (4.00-11.30)
--- NOTE | 2022-12-28 05:34 | NUR ---
END OF SHIFT SUMMARY 5LPM NC ALL NIGHT, SLEPT ON AND OFF, UP TO CHAIR FOR 2 HOURS, PAIN TEATED X'S 1, NAUSEA TREATED X'S 1, UO DARK, TEA COLORED AND 450 CC, OSTOMY OUTPUT BROWN, LIQUID, SCANT, APPLIANCE BURPED SEVERAL TIMES FOR GAS, CXRAY COMPLETED THIS AM AND LABS PENDING, SOFT B/P'S OVERNIGHT, POSSIBLY NEEDS AN INCREASE IN MIDODRINE DOSAGE?
[2022-12-28 05:36] LABS: Albumin, Blood 1.6 g/dL (3.4-5.0); Anion Gap 7 mmol/L (6-16); Blood Urea Nitrogen 42 mg/dL (8-24); Bun/Creatinine Ratio 27.1 (12.0-20.0); CO2, Blood 28 mmol/L (21-32); Calcium, Blood 7.4 mg/dL (8.5-10.1); Chloride, Blood 99 mmol/L (98-108); Creatinine, Blood 1.55 mg/dL (0.60-1.20); Glomerular Filtration Rate 50 (60-); Glucose, Blood 128 mg/dL (70-99); Potassium, Blood 3.5 mmol/L (3.5-5.5); Sodium, Blood 134 mmol/L (136-145)
--- NOTE | 2022-12-28 07:30 | NUR ---
ASSUMED CARE: PT RESTING IN BED AT THIS TIME. 5L O2 VIA NC. HR IN 90S, AFIB. PT DENIES PAIN, JUST STATES HE WANTS MORE SLEEP.
--- NOTE | 2022-12-28 11:38 | NUR ---
PT CALLED STAFF TO BEDSIDE STATING THAT HE NEEDED TO DISCHARGE BEFORE THURSDAY DUE TO RIDE NOT BEING AVAILABLE AFTER THAT. PT WANTED TO KNOW WHY HE WASN'T DISCHARGED. INFORMED PT THAT HE STILL NEEDS OSTOMY TRAINING. ASKED WHY HE HAD NOT RECIEVED IT ALREADY. REMINDED HIM THAT EDUCATION HAS BEEN GRADUALLY OCCURRING BUT PRIORITY HAS BEEN HEART RATE AND BLOOD PRESSURE. DR BERMUDEZ CAME TO SEE PT AND REMINDED HIM THAT WE HAVE GRADUALLY BEEN ADVANCING DIET AND WORKING ON AMBULATION, MONITORING OSTOMY OUTPUT AND TOLERANCE OF FOOD. REITERATED THAT SURGICAL NURSES HAVE SPECIFIC EDUCATION FOR OSTOMY PATIENTS TO TEACH THEM HOW TO PERFORM SELF CARE. PT C/O DIFFICULTY SWALLOWING. DR BERMUDEZ EXAMINED AND FEELS PT IS DEVELOPING THRUSH. SEE NEW ORDERS.
--- NOTE | 2022-12-28 18:49 | NUR ---
REPORT GIVEN TO DAISHA SURGICAL NURSE. PT TRANSFERRED VIA WHEEL CHAIR ON 5L O2. UPON ARRIVAL TO ROOM SHOWED NAHEED DRESSING TO SURGICAL NURSE AND NOTED NEW YELLOW ON TOP OF DRESSING. SURGICAL NURSE STATED OSTOMY APPEARED TO BE LEAKING. DRESSING STRIPPED AND SURGICAL NURSE CHANGING OSTOMY APPLIANCE AND NAHEED DRESSING NOW.
--- NOTE | 2022-12-28 19:52 | NUR ---
PT ARRIVED TO THE UNIT AT APPROXIMATELY 1820. AT TIME OF ARRIVAL PT HAD A FLAT AFFECT AND SOMNOLENT AFTER RESTING IN BED. ABD DISTENDED AND FIRM BUT NON-TENDER ABD MIDLINE NAHEED DRESSING IN PLACE BUT SATURATED WITH SS DRAINAGE AND UNABLE TO HOLD SUCTION. OSTOMY APPLIANCE ALSO APPEARED TO BE LEAKING UNDER NAHEED DRESSING. DRESSING WAS REMOVED AND CLEANSED WITH SKINTEGRITY. OSTOMY APPLIANCE CHANGED. MEDIPORE DRESSING PLACED OVER MIDLINE INCISION. ATTEMPTED TO LOCATE NAHEED DRESSING TO FIT OVER INCISION, INDU AVILA NOTIFIED. PT WAKES WHEN SPOKEN TO AND PLEASANT. PT PLACED ON 5L NC. REPORT GIVEN TO NOC MAKAYLA.
[2022-12-29 01:08] LABS: BASOPHILS ABSOLUTE AUTO 0.06 K/mm3 (0.00-0.23); BASOPHILS PERCENT AUTO 0 % (0-2); EOSINOPHILS ABSOLUTE AUTO 0.08 K/mm3 (0.00-0.68); EOSINOPHILS PERCENT AUTO 1 % (0-6); Hematocrit 45.5 % (37.0-53.0); Hemoglobin 15.2 g/dL (13.5-17.5); IMMATURE GRAN ABSOLUTE AUTO 0.18 K/mm3 (0.00-0.10); IMMATURE GRAN PERCENT AUTO 1 % (0-1); LYMPHOCYTES ABSOLUTE AUTO 0.71 K/mm3 (0.84-5.20); LYMPHOCYTES PERCENT AUTO 5 % (21-46); MONOCYTES ABSOLUTE AUTO 0.72 K/mm3 (0.16-1.47); MONOCYTES PERCENT AUTO 5 % (4-13); Mean Corpuscular HGB 28.6 pg (26.0-34.0); Mean Corpuscular HGB Conc 33.4 g/dL (31.5-36.5); Mean Corpuscular Volume 86 fL (80-100); Mean Platelet Volume 10.8 fL (9.1-12.4); NEUTROPHILS ABSOLUTE AUTO 13.99 K/mm3 (1.96-9.15); NEUTROPHILS PERCENT AUTO 89 % (41-73); Platelet Count 338 K/mm3 (150-400); RDW Coefficient Variation 17.7 % (11.7-14.2); RDW Standard Deviation 53.1 fL (35.1-46.3); Red Blood Cell Count 5.31 M/mm3 (4.30-5.90); White Blood Cell Count 15.74 K/mm3 (4.00-11.30)
[2022-12-29 01:23] LABS: Albumin, Blood 1.5 g/dL (3.4-5.0); Anion Gap 6 mmol/L (6-16); Blood Urea Nitrogen 46 mg/dL (8-24); Bun/Creatinine Ratio 31.9 (12.0-20.0); CO2, Blood 28 mmol/L (21-32); Calcium, Blood 7.3 mg/dL (8.5-10.1); Chloride, Blood 99 mmol/L (98-108); Creatinine, Blood 1.44 mg/dL (0.60-1.20); Glomerular Filtration Rate 55 (60-); Glucose, Blood 114 mg/dL (70-99); Phosphorus, Blood 3.7 mg/dL (2.5-4.9); Potassium, Blood 3.6 mmol/L (3.5-5.5); Sodium, Blood 133 mmol/L (136-145)
--- NOTE | 2022-12-29 02:19 | NUR ---
CALL PLACED TO ABOUT MENTATION CHANGES. PT IS ANSWERING ORIENTATION QUESTIONS CORRECTLY, BUT HAVING SOME POSSIBLE DELIRIUM. ASKED ME TO "CHECK ABOVE THE CELLING PANELS FOR WRITING". ORDERED A VBG, AND CONTINUE TO MONITOR.
[2022-12-29 02:51] LABS: Base Excess Venous 3.9 mmol/L; Bicarbonate Venous 26.7 mmol/L (24.0-30.0); PCO2 Venous 49.7 mmHg (38-42); pH Blood Venous 7.38 (7.34-7.37)
--- NOTE | 2022-12-29 05:27 | NUR ---
SHIFT SUMMARY PT ALERT, AND ABLE TO ANSWER ORIENTATION QUESTIONS CORRECTLY, BUT INTERMITTENT CONFUSION AND AGITATION. PT STATED HE WANTED HE KEYS SO HE COULD LEAVE. MYSELF AND THE CHARGE NURSE WERE ABLE TO CALM/REORIENT AND GET THE PATIENT BACK IN BED. BP'S A LITTLE SOFT, BUT MAP STILL GOOD. PT REMAINS ON 4L O2 TO MAINTAIN SATS >90. DRESSING TO MIDLINE CHANGED ONCE, REMOVED MEDIPORE AND PLACE A ABD PAD FOR MORE ABSORPTION. WHITE IN PLACE AND DRAINING TO GRAVITY. OSTOMY OUTPUT IS BROWN/LIQUIDY. CALL LIGHT WITHIN REACH.
--- NOTE | 2022-12-29 13:09 | NUR ---
1252 PT DEMANDED THIS RN REMOVE HIS POWERGLIDE, IV AND CATHETER HE WANTS TO LEAVE TO "SEND A LETTER" WHEN THIS RN ATTEMPTED TO ASK MORE QUESTIONS REGARDING WHY HE WANTS TO LEAVE THE PATIENT STATED HE WAS "TIRED OF THE LITTLE GAMES AND WAS LEAVING." PT UNABLE TO ANSWER QUESTIONS APPROPRIATLY AND SEEMS UNSURE OF THE ENTIRE SCOPE OF HIS CLINICAL CONDITION. ATTEMPTED TO TALK TO HIM ABOUT HIS OXYGEN REQUIREMENTS AT THIS TIME. HE STATED THAT IT DIDNT MATTER AND HE WOULD BE FINE. HE DESATS TO 88% WHILE ON ROOM AIR BUT 94% ON 4L. ATTEMPTED TO ASK HIM ABOUT OSTOMY EDUCATION AND HE STATED THAT HE WOULD HAVE ANOTHER HEALTH COMMUNITY RELATIONS ADVISOR HELP HIM SINCE HE DOES NOT CARE FOR HOW THIS HOSPITAL HAS TREATED HIM. ALSO NOTICED PT HAS VERY DARK COLORED URINE AND HIS EYES ARE SLIGHTLY YELLOW IN COLOR. NOTIFIED DR. MATTA, ORDERS RECIEVED TO ASK PALLIATIVE CARE TO COME TALK TO PATIENT. DECLINED FURTHER EDUCATION OR HELP FROM THIS RN. PALLIATIVE CARE CURRENTLY IN ROOM.
--- NOTE | 2022-12-29 13:27 | NUR ---
PT IS HALLUCINATING AT THIS TIME. HE IS SEEING SMOKE AND DUST IN HIS ROOM, NOTHING PRESENT IN ROOM. PT IS WILLING TO STAY AT THIS TIME AFTER PALLIATIVE CARE IN ROOM TO TALK TO PATIENT. HE IS ALLOWING LAB TO DRAW AT THIS TIME.
[2022-12-29 13:58] LABS: Albumin, Blood 1.6 g/dL (3.4-5.0); Albumin/Globulin Ratio 0.4 (0.8-1.8); Bilirubin, Direct 4.9 mg/dL (0.0-0.3); Bilirubin, Indirect 1.1 mg/dL (0.1-0.7); Globulin, Blood 4.2 g/dL (2.2-4.0); Total Protein, Blood 5.8 g/dL (6.4-8.2)
[2022-12-29 14:11] LABS: Base Excess Venous 4.7 mmol/L; Bicarbonate Venous 27.8 mmol/L (24.0-30.0); PCO2 Venous 44.8 mmHg (38-42); pH Blood Venous 7.42 (7.34-7.37)
--- NOTE | 2022-12-29 14:54 | NUR ---
PT SITTING UP IN CHAIR AT THIS TIME, PLEASANT AND COOPERATIVE WITH CARE AND THIS RN. DENIES WANTING TO LEAVE AT THIS TIME. REMAINS NON RECEPTIVE TO OSTOMY TEACHING AT THIS TIME. WILL CONTINUE TO ATTEMPT EDUCATION.
--- NOTE | 2022-12-29 15:25 | NUR ---
Patient is lying in bed and alert but sleepy. Patient immediately tells me about his medical issues, his Jewish belief system and his prayer to see all people know Bruce. He then talks with tears in his eyes about the recent suicidal of his daughter just last june. We then talk about the complicated work of bereavement and ways to navigate through the highs and lows of grief. I normalize his feelings, reinforce helpful attitudes and practices and provide grief support, therapeutic listening and prayer. Patient responded well and showed signs of being comforted. I will continue to remain available to patient and family.
--- NOTE | 2022-12-29 15:41 | NUR ---
Met with pt as requested by Dr. Dominguez and bedside RN for his increased level of agitation, requested assist in pt assessment. Upon arriving, pt reported believing he was being "forced to stay here". We talked for a while, and discussed the items he would need in order to sucessfully change his ostomy bag, relieve his pain. I offered to wash his glasses, and he gladly handed them over. Once his glasses were clean, and returned to him, we began to build a rapport. He began to speak in a softer voice, and did agree to stay for "a couple more days". Noted and informed Dr. Dominguez of pt's halucination of seeing "specks of dirt on the byers, in the air". She will follow up, and Palliative will remain involved as needed.
--- NOTE | 2022-12-29 16:43 | NUR ---
SHIFT SUMMARY SINCE PREVIOUS NOTE PT HAS BEEN RECEPTIVE TO STAYING AT THE HOSPITAL, HE HAS ASKED QUESTIONS ABOUT HIS OSTOMY AND EDUCATION GIVEN ON EMPTYING AND BURPING THE BAG. OUTPUT REMAINS LIQUID AND BROWN. MIDLINE INCISION CONTINUES TO HAVE MODERATE SEROSANGUINOUS DRAINAGE. PT CONTINUES TO HAVE HALLUCINATIONS OF SMOKE AND DUST IN ROOM BUT HAS BEEN COOPERATIVE. HE FEELS BETTER AFTER MEETING WITH SPIRITUAL CARE AND PALLIATIVE CARE. BLOOD PRESSURES REMAINS LOW, MIDODRINE GIVEN PER EMAR. WHITE REMOVED THIS MORNING.
[2022-12-30 05:08] LABS: BASOPHILS ABSOLUTE AUTO 0.04 K/mm3 (0.00-0.23); BASOPHILS PERCENT AUTO 0 % (0-2); EOSINOPHILS PERCENT AUTO 1 % (0-6); Hematocrit 40.2 % (37.0-53.0); IMMATURE GRAN ABSOLUTE AUTO 0.19 K/mm3 (0.00-0.10); IMMATURE GRAN PERCENT AUTO 2 % (0-1); LYMPHOCYTES ABSOLUTE AUTO 0.73 K/mm3 (0.84-5.20); LYMPHOCYTES PERCENT AUTO 7 % (21-46); MONOCYTES ABSOLUTE AUTO 0.72 K/mm3 (0.16-1.47); MONOCYTES PERCENT AUTO 6 % (4-13); Mean Corpuscular HGB 29.1 pg (26.0-34.0); Mean Corpuscular HGB Conc 34.8 g/dL (31.5-36.5); Mean Corpuscular Volume 84 fL (80-100); NEUTROPHILS ABSOLUTE AUTO 9.53 K/mm3 (1.96-9.15); NEUTROPHILS PERCENT AUTO 84 % (41-73); Platelet Count 348 K/mm3 (150-400); RDW Coefficient Variation 17.4 % (11.7-14.2); RDW Standard Deviation 52.6 fL (35.1-46.3); Red Blood Cell Count 4.81 M/mm3 (4.30-5.90); White Blood Cell Count 11.31 K/mm3 (4.00-11.30)
[2022-12-30 05:45] LABS: Albumin, Blood 1.6 g/dL (3.4-5.0); Anion Gap 5 mmol/L (6-16); Blood Urea Nitrogen 38 mg/dL (8-24); Bun/Creatinine Ratio 35.5 (12.0-20.0); CO2, Blood 28 mmol/L (21-32); Calcium, Blood 7.5 mg/dL (8.5-10.1); Chloride, Blood 103 mmol/L (98-108); Creatinine, Blood 1.07 mg/dL (0.60-1.20); Glomerular Filtration Rate 78 (60-); Glucose, Blood 111 mg/dL (70-99); Phosphorus, Blood 1.8 mg/dL (2.5-4.9); Potassium, Blood 3.3 mmol/L (3.5-5.5); Sodium, Blood 136 mmol/L (136-145)
--- NOTE | 2022-12-30 06:35 | NUR ---
SHIFT SUMMARY PT A&OX 1-2 BUT COOPERATIVE WITH CARE THIS SHIFT. OCCASIONAL DELUSIONS/CONFUSION BUT CAN BE REORIENTED. MEDICATED ONCE FOR PAIN. TOLERATING FLUIDS, AND ASKED TO TRY SOME GUS CRACKERS, NO N/V. OSTOMY HAS BEEN PRODUCTIVE, BROWN/LIQUIDY. NEW OSTOMY APPLIANCE PLACED 12/29. CHANGED MIDLINE ABD DRESSING TWICE, SEROSANGUINEOUS DRAINAGE. SBA TO BATHROOM, TO HELP MANAGE LINES. CALL LIGHT WITHIN REACH.
[2022-12-30 08:47] LABS: Albumin, Blood 1.6 g/dL (3.4-5.0); Albumin/Globulin Ratio 0.4 (0.8-1.8); Bilirubin, Direct 3.9 mg/dL (0.0-0.3); Bilirubin, Indirect 1.1 mg/dL (0.1-0.7); Globulin, Blood 3.9 g/dL (2.2-4.0); Total Protein, Blood 5.5 g/dL (6.4-8.2)
--- NOTE | 2022-12-30 11:47 | NUR ---
PT GAVE ME PERMISSION TO CARE FOR THEM TODAY.
--- NOTE | 2022-12-30 17:55 | NUR ---
SHIFT SUMMARY ASSUMED CARE OF PATIENT AT 1000 FROM SHAMA LAZO RN. PATIENT ALERT AND ORIENTED IN ROOM. SBA WITH FWW TO STAND AND AMBULATE, WORKING WITH PT/OT. MIDLINE ABD INCISION WITH MODERATE SS OUTPUT. DRESSING CHANGED X 2 THIS SHIFT. LLQ OSTOMY WITH MODERATE SOFT/LIQUID BROWN STOOL OUTPUT AND GAS. TOLERATING FULL LIQUID DIET. PLAN FOR DISCHARGE TO SNF TOMORROW 12/31/22.
--- NOTE | 2022-12-30 19:40 | NUR ---
HR MANAGEMENT DR VÁZQUEZ CALLED D/T PTS BP BEING OUT OF PERAMITERS FOR LOPRESSOR, BUT GR IS 120-[address] TOMLINSONAYED THIS MED TO BE GIVEN.
--- NOTE | 2022-12-31 04:08 | NUR ---
POD8 FOR EX LAP WITH SIGMOID COLECTOMY AND OSTOMY CREATION. MIDLINE INCISION IS C/D/I. NO STOOL NOTED FROM OSTOMY, BUT PASSING FLATTUS. VSS. PT SLEPT ON AND OFF T/O THE NIGHT. TOLLERATING REGULAR DIET W/O N/V. PT VOIDING W/O DIFFICULTY. PT AMBULATED TO THE BATHROOM MULTIPLE TIMES W/O DIFFICULTY, CALLED APPROPRIATELY T/O THE NIGHT. PT DID NOT REQUIRE PAIN MEDICATION. PLAN FOR PT TO POSSIBLY D/C TO [facility] TODAY, AWAITNG ACCEPTANCE TO SNF. THE PATIENT IS CURRENTL RESTING IN BED, EATING A SNACK, CALL LIGHT IN REACH
--- NOTE | 2022-12-31 10:20 | NUR ---
Spiritual Care visit conducted. Patient is sitting on a chair and alert. He immediately tells me that he feels like his mind has gone to a dark place and that he needs the power of God to uplift his spirit today. So I gladly supply a prayer for the patient who states that he was very encouraged by the prayer and feels much uplifted in his spirits. He talks about going home with home health and he is excited about that idea and hopes that it all comes together. I will continue to remain available to patient and family.
[2022-12-31 11:10] LABS: BASOPHILS ABSOLUTE AUTO 0.06 K/mm3 (0.00-0.23); BASOPHILS PERCENT AUTO 1 % (0-2); EOSINOPHILS ABSOLUTE AUTO 0.05 K/mm3 (0.00-0.68); EOSINOPHILS PERCENT AUTO 1 % (0-6); Hematocrit 41.1 % (37.0-53.0); Hemoglobin 14.5 g/dL (13.5-17.5); IMMATURE GRAN ABSOLUTE AUTO 0.26 K/mm3 (0.00-0.10); IMMATURE GRAN PERCENT AUTO 2 % (0-1); LYMPHOCYTES ABSOLUTE AUTO 0.99 K/mm3 (0.84-5.20); LYMPHOCYTES PERCENT AUTO 9 % (21-46); MONOCYTES PERCENT AUTO 7 % (4-13); Mean Corpuscular HGB 29.1 pg (26.0-34.0); Mean Corpuscular HGB Conc 35.3 g/dL (31.5-36.5); Mean Corpuscular Volume 82 fL (80-100); Mean Platelet Volume 10.8 fL (9.1-12.4); NEUTROPHILS ABSOLUTE AUTO 8.79 K/mm3 (1.96-9.15); NEUTROPHILS PERCENT AUTO 80 % (41-73); Platelet Count 400 K/mm3 (150-400); RDW Coefficient Variation 17.2 % (11.7-14.2); RDW Standard Deviation 50.2 fL (35.1-46.3); Red Blood Cell Count 4.99 M/mm3 (4.30-5.90); White Blood Cell Count 10.95 K/mm3 (4.00-11.30)
[2022-12-31 11:40] LABS: Albumin, Blood 1.8 g/dL (3.4-5.0); Albumin/Globulin Ratio 0.4 (0.8-1.8); Bilirubin, Total 4.2 mg/dL (0.1-1.0); Bun/Creatinine Ratio 26.3 (12.0-20.0); Calcium, Blood 7.9 mg/dL (8.5-10.1); Creatinine, Blood 0.84 mg/dL (0.60-1.20); Globulin, Blood 4.3 g/dL (2.2-4.0); Potassium, Blood 3.5 mmol/L (3.5-5.5); Total Protein, Blood 6.1 g/dL (6.4-8.2)
--- NOTE | 2022-12-31 16:56 | NUR ---
SHIFT SUMMARY PATIENT ALERT AND ORIENTED. SBA IN ROOM TO CHAIR AND TOILET. MIDLINE ABD INCISION WITH MODERATE SS DRAINAGE. CHANGING ABD PADS PRN. DR BERMUDEZ REMOVED A COUPLE AMIE. OSTOMY WITH MODERATE SOFT BROWN OUTPUT AND GAS. MEDICATED FOR PAIN PRN. TELE IS AFIB AT 102. TOLERATING REGULAR DIET AND LIQUIDS. VOIDING WELL. PLAN FOR DISCHARGE TO SNF WHEN BED AVAILABLE.
--- NOTE | 2023-01-01 03:29 | NUR ---
DRESSING CHANGE 2ND DRESSING CHANGE OF THE SHIFT, ABD NOTED TO HAVE A MODERATE AMOUNT OF PURULENT FLUID ON THE CLOTH. FRYABLE, SLIGHTLY SLOUGHING TISSUE NOTED AROUND EVERY STAPLE ON THE PATIENTS ABDOMEN. BELLY BUTTON NOTED TO HAVE SMALL BLACK AREA ON THE LEFT SIDE, WHERE THE INCISION ROUNDS THE UMBILICUS. REDDNESS AND HEAT NOTED AORUND THE INCISION, MOST NOTEABLE AT THE BOTTOM OF THE PATIENTS ABDOMEN. WOUND CLEANED WITH WOUND SPRAY AND STERILE 4X4'S. DRESSED WITH ABD PAD AND MEDIPORE TAPE.
--- NOTE | 2023-01-01 04:17 | NUR ---
POD9 FOR EX LAP WITH SIGMOID COLECTOMY. DRESSING IS C/D/I, SEE PREVIOUS NOTE FOR UPDATE ON WOUND FINDINGS, PLAN TO UPDATE NEXT SHIFT ON FINDINGS. STOMA APPEARS RED AND BEEFY, MODERATE BROWN OUTPUT NOTED T/O THE NIGHT W/FLATTUS. VSS. LOW URINE OUTPUT NOTED, PT ENCOURAGED T/O THE NIGHT TO INCREASE ORAL FLUIDS, MODERATE RESULTS NOTED. PT SAT ON EDGE OF BED MULTIPLE TIMES T/O THE NIGHT ATTEMPTING TO VOID. OFFERED TO HELP PT TO [facility] AND HE DECLINED. BLADDER SCAN CHARTED. NOT >400. PT SLEPT ON AND OFF T/O THE NIGHT, MEDICATED FOR PAIN ONCE WITH ULTRAM. TELE READS AFIB 90. NO ACUTE EVENTS. PLAN FOR PT TO D/C TO ACCEPTING SNF. THE PATIENT IS CURRENTLY RESTING IN BED, IN NO DISTRESS, CALL LIGHT IN REACH
[2023-01-01 15:08] LABS: Influenza A, PCR NEGATIVE (NEGATIVE); Influenza B, PCR NEGATIVE (NEGATIVE); Resp Syncytial Virus, PCR NEGATIVE (NEGATIVE); SARS-Cov-2 (COVID-19) PCR, MMC NEGATIVE (NEGATIVE)
--- NOTE | 2023-01-01 17:11 | NUR ---
DISCHARGE SUMMARY PATIENT ALERT AND ORIENTED THROUGHOUT SHIFT. SBA IN ROOM TO CHAIR AND TOILET WITH FWW. MIDLINE ABD INCISION WITH MODERATE SS OUTPUT. DRESSING CHANGES PRN. LLQ OSTOMY WITH MODERATE LIQUID BROWN STOOL OUTPUT. OSTOMY TEACHING ONGOING, PATIENT STRUGGLING WITH HAND COORDINATION TO BURP OSTOMY. TOLERATING REGULAR DIET AND LIQUIDS. VOIDING WELL. DISCHARGE ORDERS GIVEN. REPORT CALLED TO MAKAYLA OSORIO AT [facility]. PATIENT LEFT UNIT AT 1700 VIA WHEELCHAIR TO TRANSPORT TO [facility] VIA PRIVATE VEHICLE.
== END 2023-01-01 16:35 | DRG 329 ==
LOC: ER 12:02 → ICUE 15:02 → ICUW 15:02 → SURS 15:02 → ICUE 15:49 → PCU 12-25 17:18 → SURS 12-28 19:19
PROVIDERS: Emergency Medicine; Family Medicine; Internal Medicine; Internal Medicine Critical Care Medicine; Nurse Practitioner Acute Care; Physician Assistant; Student in an Organized Health Care Education/Training Program; Surgery; ADMIT Internal Medicine
PROC: 0BH18EZ Insertion of Endotracheal Airway into Trachea, Via Natural or Artificial Opening Endoscopic (ICD-10-PCS; 2022-12-23)
PROC: 0DBN0ZZ Excision of Sigmoid Colon, Open Approach (ICD-10-PCS; 2022-12-23)
PROC: 5A2204Z Restoration of Cardiac Rhythm, Single (ICD-10-PCS; 2022-12-23)
PROC: 4A133R1 Monitoring of Arterial Saturation, Peripheral, Percutaneous Approach (ICD-10-PCS; 2022-12-23)
PROC: 0T9B30Z Drainage of Bladder with Drainage Device, Percutaneous Approach (ICD-10-PCS; 2022-12-23)
PROC: 3E033XZ Introduction of Vasopressor into Peripheral Vein, Percutaneous Approach (ICD-10-PCS; 2022-12-23)
PROC: 5A1935Z Respiratory Ventilation, Less than 24 Consecutive Hours (ICD-10-PCS; 2022-12-23)
PROC: 0D1H0Z4 Bypass Cecum to Cutaneous, Open Approach (ICD-10-PCS; principal; 2022-12-23 18:45)
DX: K57.20 Diverticulitis of large intestine with perforation and abscess without bleeding (principal); G92.8 Other toxic encephalopathy; I50.23 Acute on chronic systolic (congestive) heart failure; J96.01 Acute respiratory failure with hypoxia; I42.8 Other cardiomyopathies; N17.9 Acute kidney failure, unspecified; E87.1 Hypo-osmolality and hyponatremia; R18.8 Other ascites; Z20.822 Contact with and (suspected) exposure to COVID-19; G47.33 Obstructive sleep apnea (adult) (pediatric); I48.0 Paroxysmal atrial fibrillation; I11.0 Hypertensive heart disease with heart failure; K21.9 Gastro-esophageal reflux disease without esophagitis; E88.09 Other disorders of plasma-protein metabolism, not elsewhere classified; E66.01 Morbid (severe) obesity due to excess calories; F32.A Depression, unspecified; I27.20 Pulmonary hypertension, unspecified; E87.6 Hypokalemia; E83.39 Other disorders of phosphorus metabolism; E87.5 Hyperkalemia; E80.6 Other disorders of bilirubin metabolism; Z68.38 Body mass index [BMI] 38.0-38.9, adult; Z99.89 Dependence on other enabling machines and devices; Z86.711 Personal history of pulmonary embolism; Z86.718 Personal history of other venous thrombosis and embolism; Z98.890 Other specified postprocedural states; Z79.01 Long term (current) use of anticoagulants; Z79.899 Other long term (current) drug therapy
CPT/HCPCS: 0241U; 36415; 71045; 71260; 74177; 80048; 80053; 80069; 80076; 80162; 81001; 82803; 83735; 83880; 84100; 84132; 84484; 85025; 85027; 85610; 85730; 87040; 87086; 88307; 93005; 93010; 94002; 94003; 94660; 94760; 94762; 96365-59; 96375-59; 97110; 97116; 97162; 97166; 97530; 97535; 99285-25; A9270; C1751; C9113; J0171; J0282; J1100; J1644; J1940; J2370; J2405; J2543; J2704; J3010; J3480; J7040; J7050; J7060; Q9967

== ENCOUNTER 2023-01-24 10:35 | Emergency (ER) | payer OTHER ==
[~2023-01-24] VITALS: Ht 177.8 cm; Wt 102.1 kg
[2023-01-24 11:51] LABS: BASOPHILS ABSOLUTE AUTO 0.13 K/mm3 (0.00-0.23); BASOPHILS PERCENT AUTO 2 % (0-2); EOSINOPHILS ABSOLUTE AUTO 0.25 K/mm3 (0.00-0.68); EOSINOPHILS PERCENT AUTO 3 % (0-6); Hematocrit 47.8 % (37.0-53.0); Hemoglobin 15.6 g/dL (13.5-17.5); IMMATURE GRAN ABSOLUTE AUTO 0.02 K/mm3 (0.00-0.10); IMMATURE GRAN PERCENT AUTO 0 % (0-1); LYMPHOCYTES ABSOLUTE AUTO 1.29 K/mm3 (0.84-5.20); LYMPHOCYTES PERCENT AUTO 17 % (21-46); MONOCYTES ABSOLUTE AUTO 0.69 K/mm3 (0.16-1.47); MONOCYTES PERCENT AUTO 9 % (4-13); Mean Corpuscular HGB 29.1 pg (26.0-34.0); Mean Corpuscular HGB Conc 32.6 g/dL (31.5-36.5); Mean Corpuscular Volume 89 fL (80-100); NEUTROPHILS ABSOLUTE AUTO 5.04 K/mm3 (1.96-9.15); NEUTROPHILS PERCENT AUTO 68 % (41-73); Platelet Count 376 K/mm3 (150-400); RDW Coefficient Variation 17.2 % (11.7-14.2); Red Blood Cell Count 5.37 M/mm3 (4.30-5.90); White Blood Cell Count 7.42 K/mm3 (4.00-11.30)
[2023-01-24 12:08] LABS: Albumin, Blood 2.8 g/dL (3.4-5.0); Albumin/Globulin Ratio 0.5 (0.8-1.8); Bilirubin, Total 0.9 mg/dL (0.1-1.0); Bun/Creatinine Ratio 15.2 (12.0-20.0); Calcium, Blood 8.6 mg/dL (8.5-10.1); Creatinine, Blood 0.92 mg/dL (0.60-1.20); Globulin, Blood 5.5 g/dL (2.2-4.0); Potassium, Blood 4.5 mmol/L (3.5-5.5); Total Protein, Blood 8.3 g/dL (6.4-8.2)
== END 2023-01-24 15:37 | disposition home or self-care (01) ==
LOC: ER 10:35
PROVIDERS: Physician Assistant
DX: Z48.01 Encounter for change or removal of surgical wound dressing (principal); I48.0 Paroxysmal atrial fibrillation; I11.0 Hypertensive heart disease with heart failure; I50.22 Chronic systolic (congestive) heart failure; G47.33 Obstructive sleep apnea (adult) (pediatric); F17.220 Nicotine dependence, chewing tobacco, uncomplicated; Z79.899 Other long term (current) drug therapy; Z79.01 Long term (current) use of anticoagulants
CPT/HCPCS: 36415; 80053; 83690; 85025

== ENCOUNTER 2023-01-26 00:25 | Day surgery (SDC) | payer OTHER | END 2023-01-26 23:08 | disposition home or self-care (01) | LOC: WOUND 00:25 | DX: T81.31XA Disruption of external operation (surgical) wound, not elsewhere classified, initial encounter (principal); I10 Essential (primary) hypertension; Z86.718 Personal history of other venous thrombosis and embolism; Z79.01 Long term (current) use of anticoagulants; Z86.711 Personal history of pulmonary embolism | CPT/HCPCS: G0463 ==

== ENCOUNTER 2023-01-30 02:21 | Day surgery (SDC) | payer OTHER | END 2023-01-30 22:40 | disposition home or self-care (01) | LOC: WOUND 02:21 | DX: T81.31XA Disruption of external operation (surgical) wound, not elsewhere classified, initial encounter (principal); S31.109A Unspecified open wound of abdominal wall, unspecified quadrant without penetration into peritoneal cavity, initial encounter ==

== ENCOUNTER 2023-02-02 00:10 | Day surgery (SDC) | payer OTHER | END 2023-02-02 22:37 | disposition home or self-care (01) | LOC: WOUND 00:10 | DX: T81.31XD Disruption of external operation (surgical) wound, not elsewhere classified, subsequent encounter (principal); Y83.8 Other surgical procedures as the cause of abnormal reaction of the patient, or of later complication, without mention of misadventure at the time of the procedure; S31.109D Unspecified open wound of abdominal wall, unspecified quadrant without penetration into peritoneal cavity, subsequent encounter; X58.XXXD Exposure to other specified factors, subsequent encounter ==

== ENCOUNTER 2023-02-04 03:41 | Day surgery (SDC) | payer OTHER | END 2023-02-04 22:54 | disposition home or self-care (01) | LOC: WOUND 03:41 | DX: S31.109A Unspecified open wound of abdominal wall, unspecified quadrant without penetration into peritoneal cavity, initial encounter (principal); T81.31XD Disruption of external operation (surgical) wound, not elsewhere classified, subsequent encounter ==

== ENCOUNTER 2023-02-06 01:37 | Day surgery (SDC) | payer OTHER | END 2023-02-06 22:52 | disposition home or self-care (01) | LOC: WOUND 01:37 | DX: T81.31XD Disruption of external operation (surgical) wound, not elsewhere classified, subsequent encounter (principal); S31.109D Unspecified open wound of abdominal wall, unspecified quadrant without penetration into peritoneal cavity, subsequent encounter ==

== ENCOUNTER 2023-02-10 02:20 | Day surgery (SDC) | payer OTHER | END 2023-02-10 22:46 | disposition home or self-care (01) | LOC: WOUND 02:20 | DX: T81.31XD Disruption of external operation (surgical) wound, not elsewhere classified, subsequent encounter (principal); Y83.8 Other surgical procedures as the cause of abnormal reaction of the patient, or of later complication, without mention of misadventure at the time of the procedure; S31.109D Unspecified open wound of abdominal wall, unspecified quadrant without penetration into peritoneal cavity, subsequent encounter; X58.XXXD Exposure to other specified factors, subsequent encounter | CPT/HCPCS: G0463 ==

== ENCOUNTER 2023-02-13 02:04 | Day surgery (SDC) | payer OTHER | END 2023-02-13 22:43 | disposition home or self-care (01) | LOC: WOUND 02:04 | DX: T81.31XA Disruption of external operation (surgical) wound, not elsewhere classified, initial encounter (principal); S31.109A Unspecified open wound of abdominal wall, unspecified quadrant without penetration into peritoneal cavity, initial encounter; Y83.8 Other surgical procedures as the cause of abnormal reaction of the patient, or of later complication, without mention of misadventure at the time of the procedure | CPT/HCPCS: A9270; G0463 ==

== ENCOUNTER 2023-02-16 01:10 | Day surgery (SDC) | payer OTHER | END 2023-02-16 22:41 | disposition home or self-care (01) | LOC: WOUND 01:10 | DX: T81.31XD Disruption of external operation (surgical) wound, not elsewhere classified, subsequent encounter (principal); S31.109D Unspecified open wound of abdominal wall, unspecified quadrant without penetration into peritoneal cavity, subsequent encounter; X58.XXXD Exposure to other specified factors, subsequent encounter | CPT/HCPCS: A9270; G0463 ==

== ENCOUNTER 2023-02-23 00:44 | Day surgery (SDC) | payer OTHER | END 2023-02-23 22:34 | disposition home or self-care (01) | LOC: WOUND 00:44 | DX: T81.32XA Disruption of internal operation (surgical) wound, not elsewhere classified, initial encounter (principal); S31.109A Unspecified open wound of abdominal wall, unspecified quadrant without penetration into peritoneal cavity, initial encounter; Z86.718 Personal history of other venous thrombosis and embolism; Z79.01 Long term (current) use of anticoagulants; Z86.711 Personal history of pulmonary embolism; I10 Essential (primary) hypertension | CPT/HCPCS: A9270; G0463 ==

== ENCOUNTER 2023-03-02 00:13 | Day surgery (SDC) | payer OTHER | END 2023-03-02 22:49 | disposition home or self-care (01) | LOC: WOUND 00:13 | DX: T81.31XD Disruption of external operation (surgical) wound, not elsewhere classified, subsequent encounter (principal); S31.109D Unspecified open wound of abdominal wall, unspecified quadrant without penetration into peritoneal cavity, subsequent encounter | CPT/HCPCS: A9270; G0463 ==

== ENCOUNTER 2023-03-09 08:00 | Day surgery (SDC) | payer OTHER | END 2023-03-09 23:59 | disposition home or self-care (01) | LOC: WOUND 08:00 | DX: S31.109A Unspecified open wound of abdominal wall, unspecified quadrant without penetration into peritoneal cavity, initial encounter (principal); X58.XXXA Exposure to other specified factors, initial encounter; T81.31XD Disruption of external operation (surgical) wound, not elsewhere classified, subsequent encounter; I10 Essential (primary) hypertension | CPT/HCPCS: G0463 ==